=== PATIENT | female | born 1995 | race American Indian/Alaskan Native ===

== ENCOUNTER 2020-12-07 20:22 | Emergency (ER) | payer MEDICAID ==
[2020-12-07] MEDS ORDERED: ACETAMINOPHEN 325 MG TAB PO ONE (20:32)
[2020-12-07 20:35] VITALS: BP 119/69
--- NOTE | 2020-12-07 20:41 | Emergency Department Report ---
ED Female HPI - General Stated complaint: SPOTTING 15 WKS PREG - History of Present Illness Initial comments: Patient is a A0 25-year-old -T[place] female with no past medical history and who is approximately 15 weeks gestation presents to the ED with complaint of acute onset persistent pelvic pain with vaginal spotting for the last 2 days. Patient states that the vaginal bleeding increased in severity about 8 hours ago, and she contacted her ACUTE CARE OCCUPATIONAL THERAPIST physician at [facility] who advised her to come to the ED for evaluation. Patient denies nausea, vomiting, fever, chills, dizziness, syncope, chest pain or shortness of breath, dysuria, low back pain, urinary frequency and urgency or vaginal discharge. MD Complaint: vaginal bleeding, pelvic pain, other (15 weeks gestation) -: Sudden, days(s) (2) Location: suprapubic, other (vaginal) Radiation: non-radiating Severity: severe Severity scale (0 -10): 7 Quality: cramping, sharp Consistency: constant Improves with: none Worsens with: none Are you Now?: Yes (15 weeks gestation) Associated Symptoms: denies other symptoms, vaginal bleeding, abdominal pain (suprapubic). denies: vaginal discharge, nausea/vomiting, fever/chills, headaches, loss of appetite, dysuria, hematuria, rash, shortness of breath, syncope, weakness - Related Data Sexually active: Yes : 3 Para: 2 A: 0 Previous Rx's Medication Instructions Recorded Last Taken Type Docusate Sodium [Colace CAP] 100 mg PO BID #60 capsule 10/19/15 Unknown Rx Ferrous Sulfate [Feosol 325 MG tab] 325 mg PO TID #90 tablet 10/19/15 2 Days Ago Rx ~11/01/15 Acetaminophen [Tylenol] 500 mg PO Q6HR PRN #30 tablet 12/07/20 Unknown Rx Allergies Allergy/AdvReac Type Severity Reaction Status Date / Time kiwi Allergy Swelling Verified 10/18/15 00:59 MUSTARD Allergy Swelling Uncoded 11/02/15 12:58 ED Review of Systems ROS: Stated complaint: SPOTTING 15 WKS PREG Other details as noted in HPI Constitutional: denies: chills, fever Eyes: denies: eye pain, eye discharge, vision change ENT: denies: ear pain, throat pain Respiratory: denies: cough, shortness of breath, wheezing Cardiovascular: denies: chest pain, palpitations Endocrine: no symptoms reported Gastrointestinal: abdominal pain (Pelvic pain). denies: nausea, vomiting, d iarrhea, constipation, hematemesis, melena, hematochezia Genitourinary: abnormal menses (Vaginal bleeding), other (Pelvic pain). denies: urgency, dysuria, frequency, discharge Musculoskeletal: denies: back pain, joint swelling, arthralgia Skin: denies: rash, lesions Neurological: denies: headache, weakness, paresthesias Psychiatric: denies: anxiety, depression Hematological/Lymphatic: denies: easy bleeding, easy bruising ED Past Medical Hx - Past Medical History Hx Hypertension: No Hx Congestive Heart Failure: No Hx Diabetes: No Hx Deep Vein Thrombosis: No Hx Renal Disease: No Hx Sickle Cell Disease: No Hx Seizures: No Hx Asthma: No Hx COPD: No Hx HIV: No - Social History Smoking Status: Former Smoker - Medications Home Medications: Home Medications Medication Instructions Recorded Confirmed Last Taken Type Docusate Sodium [Colace CAP] 100 mg PO BID #60 capsule 10/19/15 11/03/15 Unknown Rx Ferrous Sulfate [Feosol 325 MG tab] 325 mg PO TID #90 tablet 10/19/15 11/03/15 2 Days Ago Rx ~11/01/15 Acetaminophen [Tylenol] 500 mg PO Q6HR PRN #30 tablet 12/07/20 Unknown Rx ED Physical Exam - General General appearance: alert, in no apparent distress - Head Head exam: Present: atraumatic, normocephalic, normal inspection - Eye Eye exam: Present: normal appearance, PERRL, EOMI Pupils: Present: normal accommodation - ENT ENT exam: Present: normal exam, normal orophraynx, mucous membranes moist, TM's normal bilaterally, normal external ear exam - Neck Neck exam: Present: normal inspection, full ROM - Respiratory Respiratory exam: Present: normal lung sounds bilaterally. Absent: respiratory distress, wheezes, rales, chest wall tenderness, accessory muscle use, decreased breath sounds, prolonged expiratory - Cardiovascular Cardiovascular Exam: Present: normal rhythm, tachycardia, normal heart sounds. Absent: systolic murmur, diastolic murmur, rubs, gallop - GI/Abdominal GI/Abdominal exam: Present: soft, tenderness (Palpable suprapubic tenderness), normal bowel sounds. Absent: distended, guarding, rebound, hyperactive bowel sounds, hypoactive bowel sounds, organomegaly, mass - Bi-manual exam: Present: other (Pelvic exam deferred at this time) - Extremities Exam Extremities exam: Present: normal inspection, full ROM, normal capillary refill - Back Exam Back exam: Present: normal inspection, full ROM. Absent: tenderness, CVA tenderness (R), CVA tenderness (L), muscle spasm, paraspinal tenderness, vertebral tenderness - Neurological Exam Neurological exam: Present: alert, oriented X3, CN II-XII intact, normal gait, reflexes normal - Psychiatric Psychiatric exam: Present: normal affect, normal mood - Skin Skin exam: Present: warm, dry, intact, normal color. Absent: rash ED Course Vital Signs 12/07/20 20:31 Temperature 99.2 F Pulse Rate 109 H Respiratory 18 Rate Blood Pressure 119/69 O2 Sat by Pulse 98 Oximetry ED Medical Decision Making - Lab Data Result diagrams: 12/07/20 20:43 12/07/20 20:43 - Radiology Data Radiology results: report reviewed, image reviewed Findings [address] [address] Ultrasound Report Signed Patient: LIVAN ESTRADA MR#: [id number] : 1995 Acct:[id number] Age/Sex: 25 / F ADM Date: 12/07/20 Loc: ED Attending Dr: Ordering Physician: KAMALJIT SCHULTE Date of Service: 12/07/20 Procedure(s): US OB transvaginal Accession Number(s): [id number] cc: KAMALJIT SCHULTE ULTRASOUND OBSTETRIC COMPLETE INDICATION / CLINICAL INFORMATION: Vaginal bleeding, . Clinical Gestational Age (GA) in weeks.days: TECHNIQUE: Transabdominal. COMPARISON: None available. FINDINGS: NUMBER: Single PRESENTATION: breech PLACENTA: Grade 1 and free of the os. MATERNAL ADNEXA: No significant abnormality. AMNIOTIC FLUID VOLUME: normal AMNIOTIC FLUID INDEX (STEPHANIE) in cm (if measured): ANATOMY: organs heart is normal. The other organs were not visualized MEASUREMENTS: - Biparietal Diameter = 3.3 cm = 16, 1 weeks.days - Head Circumference = 11.9 cm = 15, 6 weeks.days - Abdominal Circumference = 10.4 cm = 16, 2 weeks.days - Femur Length = 1.7 cm = 15, 0 weeks.days - Estimated Weight (in grams, if calculated): - Heart Rate (beats per minute): 158 ADDITIONAL FINDINGS: None. PERCENTILE ESTIMATED WEIGHT (if calculated): AVERAGE ULTRASOUND AGE (AUA) in weeks.days = 15 weeks 5 days IMPRESSION: 1. Single intrauterine with AUA of 15 weeks 5 days weeks.days 2. No significant sonographic abnormality. Signer Name: Rodrigo Chong MD FACR Signed: 12/07/2020 9:55 PM Workstation Name: [id number] Transcribed By: MS Dictated By: Rodrigo Chong MD Electronically Authenticated By: Rodrigo Chong MD Signed Date/Time: 12/07/202154 DD/ 51 TD/TT: Findings [facility] [address] [place] [address] Ultrasound Report Signed Patient: LIVAN ESTRADA MR#: [id number] : 1995 Acct:[id number] Age/Sex: 25 / F ADM Date: 12/07/20 Loc: ED Attending Dr: Ordering Physician: KAMALJIT SCHULTE Date of Service: 12/07/20 Procedure(s): US OB >= 14 weeks Fetus Accession Number(s): [id number] cc: KAMALJIT SCHULTE ULTRASOUND OBSTETRIC COMPLETE INDICATION / CLINICAL INFORMATION: Vaginal bleeding, . Clinical Gestational Age (GA) in weeks.days: TECHNIQUE: Transabdominal. COMPARISON: None available. FINDINGS: NUMBER: Single PRESENTATION: breech PLACENTA: Grade 1 and free of the os. MATERNAL ADNEXA: No significant abnormality. AMNIOTIC FLUID VOLUME: normal AMNIOTIC FLUID INDEX (STEPHANIE) in cm (if measured): ANATOMY: organs heart is normal. The other organs were not visualized MEASUREMENTS: - Biparietal Diameter = 3.3 cm = 16, 1 weeks.days - Head Circumference = 11.9 cm = 15, 6 weeks.days - Abdominal Circumference = 10.4 cm = 16, 2 weeks.days - Femur Length = 1.7 cm = 15, 0 weeks.days - Estimated Weight (in grams, if calculated): - Heart Rate (beats per minute): 158 ADDITIONAL FINDINGS: None. PERCENTILE ESTIMATED WEIGHT (if calculated): AVERAGE ULTRASOUND AGE (AUA) in weeks.days = 15 weeks 5 days IMPRESSION: 1. Single intrauterine with AUA of 15 weeks 5 days weeks.days 2. No significant sonographic abnormality. Signer Name: Rodrigo Chong MD FACR Signed: 12/07/2020 9:55 PM Workstation Name: [id number] Transcribed By: MS Dictated By: Rodrigo Chong MD Electronically Authenticated By: Rodrigo Chong MD Signed Date/Time: 12/07/202154 DD/ 51 TD/TT: - Medical Decision Making This is a A0 25-year-old -[place] female with no past medical history and who is approximately 15 weeks gestation presents to the ED with complaint of acute onset persistent pelvic pain with vaginal spotting for the last 2 days. Patient states that the vaginal bleeding increased in severity about 8 hours ago, and she contacted her ACUTE CARE OCCUPATIONAL THERAPIST physician at [facility] who advis ed her to come to the ED for evaluation. In the ED, patient is alert and oriented x3 and is not in any distress. Patient was treated for pain in the ED with Tylenol. Lab test results [place] [address], mild hyponatremia 135 mmol/L and mild hypokalemia of 3.3 mmol/L. The rest of the lab test results are nonactionable including urinalysis. Transvaginal ultrasound showed single live intrauterine with AUA of 15 weeks 5 days weeks.days and estimated heart rate of 158 bpm. No other significant sonographic abnormality identified. On reevaluation, patient's pain is well controlled medications. Patient will discharge home and advised to take Tylenol as needed for pain, observe and maintain complete pelvic rest and to follow-up with ACUTE CARE OCCUPATIONAL THERAPIST physician in 2 to 3 days for reevaluation or return to the ED immediately if symptoms get worse. - Differential Diagnosis Threatened miscarriage; ovarian cyst; subchorionic bleed; UTI Critical care attestation.: If time is entered above; I have spent that time in minutes in the direct care of this critically ill patient, excluding procedure time. ED Disposition Clinical Impression: Threatened miscarriage, Vaginal bleeding in , Abdominal pain during in second trimester Disposition: DC- TO HOME OR SELFCARE Is pt being admited?: No Does the pt Need Aspirin: No Condition: Stable Instructions: Vaginal Bleeding During , Second Trimester, [id number], Abdominal Pain During , [id number], Threatened Miscarriage, [id number] Additional Instructions: All lab test results were reviewed and are all nonactionable. The transvaginal ultrasound showed a single live IUP of approximately 15 weeks and 5 days, and with heart rate of 158 bpm. No other sonographic abnormalities were observed. Therefore maintain a complete pelvic rest, take Tylenol as needed for pain and follow-up with the ACUTE CARE OCCUPATIONAL THERAPIST physician in 2 to 3 days for reevaluation. Return to the ED immediately if your symptoms get worse. Prescriptions: Acetaminophen [Tylenol] 500 mg PO Q6HR PRN #30 tablet PRN Reason: Pain , Severe (7-10) Time of Disposition: 22:12 Print Language: TANZANIAN
[2020-12-07 21:00] LABS: Basophils # (Auto) 0.1 K/mm3 (0.0-0.1); Basophils % (Auto) 0.8 % (0.0-1.8); Eosinophils # (Auto) 0.1 K/mm3 (0.0-0.4); Eosinophils % (Auto) 1.5 % (0.0-4.3); Hematocrit 29.8 % (30.3-42.9); Hemoglobin 10.2 gm/dl (10.1-14.3); Lymphocytes # (Auto) 1.8 K/mm3 (1.2-5.4); Lymphocytes % (Auto) 29.1 % (13.4-35.0); Mean Corpuscular HGB Conc 34 % (30-34); Mean Corpuscular Volume 89 fl (79-97); Monocytes # (Auto) 0.4 K/mm3 (0.0-0.8); Monocytes % (Auto) 6.2 % (0.0-7.3); Platelet Count 230 K/mm3 (140-440); Red Blood Count 3.36 M/mm3 (3.65-5.03); Red Cell Distribution Width 13.6 % (13.2-15.2)
[2020-12-07 21:19] LABS: Alanine Aminotransferase 6 units/L (7-56); Albumin 3.2 g/dL (3.9-5); Blood Urea Nitrogen 7 mg/dL (7-17); Calcium 8.8 mg/dL (8.4-10.2); Hemolysis Index 3
[2020-12-07 21:20] LABS: BUN/Creatinine Ratio 18
[2020-12-07 21:20] LABS: Bilirubin,Urine NEG (Negative); Blood,Urine LG (Negative); Color,Urine Yellow (Yellow); Mucus,Urine FEW /HPF; Protein,Urine <15 mg/dL mg/dL (Negative)
--- NOTE | 2020-12-07 21:59 | Ultrasound Report ---
ULTRASOUND OBSTETRIC COMPLETE INDICATION / CLINICAL INFORMATION: Vaginal bleeding, . Clinical Gestational Age (GA) in weeks.days: TECHNIQUE: Transabdominal. COMPARISON: None available. FINDINGS: NUMBER: Single PRESENTATION: breech PLACENTA: Grade 1 and free of the os. MATERNAL ADNEXA: No significant abnormality. AMNIOTIC FLUID VOLUME: normal AMNIOTIC FLUID INDEX (STEPHANIE) in cm (if measured): ANATOMY: organs heart is normal. The other organs were not visualized MEASUREMENTS: - Biparietal Diameter = 3.3 cm = 16, 1 weeks.days - Head Circumference = 11.9 cm = 15, 6 weeks.days - Abdominal Circumference = 10.4 cm = 16, 2 weeks.days - Femur Length = 1.7 cm = 15, 0 weeks.days - Estimated Weight (in grams, if calculated): - Heart Rate (beats per minute): 158 ADDITIONAL FINDINGS: None. PERCENTILE ESTIMATED WEIGHT (if calculated): AVERAGE ULTRASOUND AGE (AUA) in weeks.days = 15 weeks 5 days IMPRESSION: 1. Single intrauterine with AUA of 15 weeks 5 days weeks.days 2. No significant sonographic abnormality. Signer Name: Rodrigo Chong MD FACR Signed: 12/07/2020 9:55 PM Workstation Name: [id number]
== END 2020-12-07 22:25 | disposition home or self-care (01) ==
LOC: ED 20:22
DX: O20.0 Threatened abortion (principal); Z87.891 Personal history of nicotine dependence; Z79.899 Other long term (current) drug therapy; Z3A.15 15 weeks gestation of pregnancy
CPT/HCPCS: 36415; 76805; 76817; 80053; 81001; 84702; 85025; 86900; 86901

== ENCOUNTER 2021-02-19 23:48 | Outpatient (CLI) | payer MEDICAID ==
[2021-02-20] MEDS ORDERED: LACTATED RINGERS 1,000 ML IV ONE (01:24)
[2021-02-20] MEDS ORDERED: CYCLOBENZAPRINE 10 MG TAB PO ONE (01:55)
[2021-02-20 02:07] LABS: Bacteria,Urine 1+ /HPF (Negative)
[2021-02-20 02:36] LABS: Bilirubin,Urine NEG (Negative); Blood,Urine NEG (Negative); Color,Urine Straw (Yellow); Mucus,Urine FEW /HPF; Protein,Urine <15 mg/dL mg/dL (Negative); Urobilinogen,Urine < 2.0 mg/dL (<2.0)
[2021-02-20 02:56] VITALS: BP 100/53
== END 2021-02-20 02:56 | disposition home or self-care (01) ==
LOC: TRG 23:48 → APU 02-20 00:45 → TRG 02-20 02:56
PROVIDERS: ATTEND Obstetrics & Gynecology
DX: O36.8120 Decreased fetal movements, second trimester, not applicable or unspecified (principal); Z3A.25 25 weeks gestation of pregnancy
CPT/HCPCS: 59025; 81001

== ENCOUNTER 2021-04-09 22:16 | Outpatient (CLI) | payer MEDICAID ==
[2021-04-09 22:48] VITALS: BP 111/59
[2021-04-09] MEDS ORDERED: LACTATED RINGERS 1,000 ML IV ONE (23:00)
[2021-04-09 23:17] LABS: Bacteria,Urine 1+ /HPF (Negative); Bilirubin,Urine NEG (Negative); Blood,Urine NEG (Negative); Color,Urine Yellow (Yellow); Mucus,Urine FEW /HPF; Protein,Urine <15 mg/dL mg/dL (Negative)
[2021-04-10] MEDS ORDERED: ACETAMINOPHEN 325 MG TAB PO ONE (00:48)
== END 2021-04-10 01:10 | disposition home or self-care (01) ==
LOC: TRG 22:16 → APU 22:25 → TRG 04-10 01:10
PROVIDERS: ATTEND Obstetrics & Gynecology
DX: O26.893 Other specified pregnancy related conditions, third trimester (principal); R10.2 Pelvic and perineal pain; R10.9 Unspecified abdominal pain; Z3A.32 32 weeks gestation of pregnancy
CPT/HCPCS: 59025; 81001; 87086; 96360; J7120

== ENCOUNTER 2021-04-21 23:28 | Outpatient (CLI) | payer MEDICAID ==
[2021-04-21 23:42] VITALS: BP 98/59
[2021-04-21] MEDS ORDERED: LACTATED RINGERS 1,000 ML IV SCH (23:45)
[2021-04-21] MEDS ORDERED: LACTATED RINGERS 1,000 ML ONE (23:53)
[2021-04-21] MEDS ORDERED: LACTATED RINGERS 500 ML IV ONE (23:57)
[2021-04-22] MEDS ORDERED: DOXYCYCLINE HYCLATE 100 MG in SODIUM CHLORIDE 0.9% 250ML 250 ML IV ONE (00:30)
== END 2021-04-22 01:56 | disposition home or self-care (01) ==
LOC: TRG 23:28 → APU 23:34 → TRG 04-22 01:56
DX: O98.313 Other infections with a predominantly sexual mode of transmission complicating pregnancy, third trimester (principal); A56.8 Sexually transmitted chlamydial infection of other sites; Z3A.34 34 weeks gestation of pregnancy; Z87.891 Personal history of nicotine dependence
CPT/HCPCS: 59025; 96365; 96366; J7050; J7120; 96360